=== PATIENT | female | born 1950 | race Asian ===

== ENCOUNTER 2017-05-23 05:47 | Day surgery (SDC) | payer MEDICARE, OTHER ==
[2017-05-23] MEDS ORDERED: FENTAnyl 50 MCG/ML VIAL (07:30)
[2017-05-23] MEDS ORDERED: PROPOFOL 20 ML (07:30)
[2017-05-23] MEDS ORDERED: MIDAZOLAM 1 MG/ML 2 ML INJ (07:30)
== END 2017-05-23 10:38 | disposition home or self-care (01) ==
LOC: GIL 05:47
DX: K29.50 Unspecified chronic gastritis without bleeding (principal); K21.0 Gastro-esophageal reflux disease with esophagitis; K44.9 Diaphragmatic hernia without obstruction or gangrene; K25.9 Gastric ulcer, unspecified as acute or chronic, without hemorrhage or perforation; I10 Essential (primary) hypertension; E78.5 Hyperlipidemia, unspecified; Z79.82 Long term (current) use of aspirin
CPT/HCPCS: 43239; 88305; 88312; 88313

== ENCOUNTER 2017-08-11 11:57 | Emergency (ER) | payer MEDICARE, OTHER | END 2017-08-11 13:20 | disposition home or self-care (01) | LOC: FTE 11:57 | DX: M79.641 Pain in right hand (principal); I10 Essential (primary) hypertension; Z79.82 Long term (current) use of aspirin | CPT/HCPCS: 73130; 73130-RT; 99283-25 ==